=== PATIENT | female | born 1935 | race Caucasian/White ===

== ENCOUNTER 2020-12-08 22:18 | Observation (INO) | payer MEDICARE ==
[~2020-12-08] VITALS: Ht 170.2 cm; Wt 75.3 kg
[2020-12-08 22:58] LABS: BASOPHILS % (AUTO) 0 % (0-1); EOSINOPHILS % (AUTO) 1 % (1-7); LYMPHOCYTES % (AUTO) 3 % (22-44); MEAN CORPUSCULAR HEMOGLOBIN 35.8 pg (27.0-34.8); MEAN CORPUSCULAR HGB CONC 34.8 g/dL (32.4-35.8); MEAN PLATELET VOLUME 8.5 fL (7.4-10.4); MONOCYTES % (AUTO) 3 % (2-9); NEUTROPHILS % (AUTO) 93 % (42-75); PLATELET COUNT 173 x10^3/uL (130-400); RED BLOOD COUNT 2.86 x10^6/uL (3.82-5.3); RED CELL DISTRIBUTION WIDTH 19.7 % (9.6-15.2)
--- NOTE | 2020-12-08 22:59 | NUR ---
BIB EMS FROM [place], [place]. PT WITH HX OF DEMENTIA WAS HAVING INCREASED SOB FROM HOME, SUSPECTED TO HAVE PE, PT BROUGHT HERE FOR FURTHER WORKUP. PT IS A/O1-2 PER [facility]. UNKOWN IF FAMILY COMING PER REPORT. 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 PT PLACED ON ALL MONITORS. NEW PIV PLACED FOR CTA. PT AMBULATYED TO BSC TO URINATE. EKG AT BEDSIDE AT THIS TIME
[2020-12-08] MEDS ORDERED: SODIUM CHLORIDE FLUSH 10ML SYR IVF ONE (23:00)
[2020-12-08 23:03] LABS: ALBUMIN 3.5 g/dL (3.4-5.0); ANION GAP 8 mmol/L (5-15); CALCIUM 8.9 mg/dL (8.5-10.1); CHLORIDE 99 mmol/L (98-107); CREATININE 0.65 mg/dL (0.55-1.02)
[2020-12-08 23:07] LABS: TROPONIN I < 0.015 ng/mL (0.000-0.045)
[2020-12-09] MEDS ORDERED: OMNIPAQUE 350 MG/ML, 75ML BOTTLE ONE
--- NOTE | 2020-12-09 | NUR ---
PT AMBULATED TO BSC AFTER CT SCAN WAS COMPLTETED. SAFETY MEASURES IN PLACE. PT ON ALL MONITORS
[2020-12-09] MEDS ORDERED: METO-99 PO (00:41)
[2020-12-09] MEDS ORDERED: LAMO25TA9 PO (00:41)
[2020-12-09] MEDS ORDERED: LISI-466 PO (00:41)
[2020-12-09] MEDS ORDERED: LEVO100T PO (00:41)
[2020-12-09] MEDS ORDERED: RISP2TAB35 PO (00:41)
[2020-12-09] MEDS ORDERED: SPIR25TA5 PO (00:41)
[2020-12-09] MEDS ORDERED: FURO-93 PO (00:41)
[2020-12-09] MEDS ORDERED: SODIUM CHLORIDE FLUSH 10ML SYR IVF PRN (01:30)
--- NOTE | 2020-12-09 01:39 | NUR ---
REPORT GIVEN TO LINUS ALARCON
[2020-12-09 01:58] LABS: BASOPHILS % (AUTO) 0 % (0-1); EOSINOPHILS % (AUTO) 0 % (1-7); LYMPHOCYTES % (AUTO) 4 % (22-44); MEAN CORPUSCULAR HEMOGLOBIN 37.3 pg (27.0-34.8); MEAN CORPUSCULAR HGB CONC 36.2 g/dL (32.4-35.8); MEAN PLATELET VOLUME 8.3 fL (7.4-10.4); MONOCYTES % (AUTO) 6 % (2-9); NEUTROPHILS % (AUTO) 89 % (42-75); PLATELET COUNT 154 x10^3/uL (130-400); RED BLOOD COUNT 2.67 x10^6/uL (3.82-5.3)
[2020-12-09] MEDS ORDERED: LABETALOL 5MG/ML, 20ML IVPush PRN (02:00)
[2020-12-09] MEDS ORDERED: POLYETHYLENE GLYCOL 17 GM PACKET PO PRN (02:00)
[2020-12-09] MEDS ORDERED: ONDANSETRON 2MG/ML, 2ML IVPush PRN (02:00)
[2020-12-09] MEDS ORDERED: NITROGLYCERIN 0.4 MG/SPRAY SL PRN (02:00)
[2020-12-09] MEDS ORDERED: MELATONIN 5 MG TABLET PO PRN (02:00)
[2020-12-09] MEDS ORDERED: ENOXAPARIN 40 MG/0.4 ML SQ SCH (02:00)
[2020-12-09] MEDS ORDERED: NITROGLYCERIN 0.4 MG BOTTLE (25 TABS) SL PRN (02:00)
[2020-12-09] MEDS ORDERED: ACETAMINOPHEN 500 MG TABLET PO PRN (02:00)
[2020-12-09 02:09] VITALS: BP 139/61
[2020-12-09 02:10] LABS: ANION GAP 6 mmol/L (5-15); CALCIUM 8.4 mg/dL (8.5-10.1); CHLORIDE 99 mmol/L (98-107); CREATININE 0.63 mg/dL (0.55-1.02)
[2020-12-09 02:17] LABS: TROPONIN I < 0.015 ng/mL (0.000-0.045)
[2020-12-09 02:49] LABS: FREE T4 (FREE THYROXINE) 1.37 ng/dL (0.76-1.46)
[2020-12-09] MEDS: LEVOTHYROXINE 100 MCG TABLET PO SCH (06:03)
[2020-12-09 06:23] VITALS: BP 153/81
[2020-12-09 08:04] LABS: TROPONIN I < 0.015 ng/mL (0.000-0.045)
[2020-12-09] MEDS: FUROSEMIDE 20 MG TABLET PO SCH ×2 (08:39→21:33)
[2020-12-09] MEDS: METOPROLOL TARTRATE 100 MG TAB PO SCH ×2 (08:39→21:33)
[2020-12-09] MEDS: LAMOTRIGINE 25 MG TABLET PO SCH ×2 (08:39→21:33)
[2020-12-09] MEDS: RISPERIDONE 2 MG TABLET PO SCH (08:39)
[2020-12-09] MEDS: LISINOPRIL 10 MG TABLET PO SCH (08:39)
[2020-12-09] MEDS: SPIRONOLACTONE 25 MG TABLET PO SCH (08:39)
[2020-12-09] MEDS ORDERED: REGADENOSON 0.4 MG/5 ML SYRINGE ONE (12:21)
[2020-12-09] MEDS ORDERED: POTASSIUM CHLORIDE 40 MEQ in SODIUM CHLORIDE 0.9% 500 ML IV ONE (12:30)
[2020-12-09 14:31] VITALS: BP 147/58
[2020-12-09 14:34] VITALS: BP_SYST 159; BP_SYST 160; BP_DIAS 61; BP_DIAS 65
[2020-12-09 21:47] VITALS: BP 119/61
[2020-12-10 01:45] VITALS: BP 145/65
[2020-12-10 04:19] VITALS: BP_SYST 119; BP_SYST 128; BP_SYST 148; BP_DIAS 63; BP_DIAS 67; BP_DIAS 68
[2020-12-10 05:04] LABS: MEAN CORPUSCULAR HEMOGLOBIN 35.6 pg (27.0-34.8); MEAN CORPUSCULAR HGB CONC 34.7 g/dL (32.4-35.8); MEAN PLATELET VOLUME 8.3 fL (7.4-10.4); PLATELET COUNT 181 x10^3/uL (130-400); RED BLOOD COUNT 2.77 x10^6/uL (3.82-5.3); RED CELL DISTRIBUTION WIDTH 19.4 % (9.6-15.2)
[2020-12-10 05:13] LABS: ANION GAP 6 mmol/L (5-15); CALCIUM 8.4 mg/dL (8.5-10.1); CHLORIDE 99 mmol/L (98-107); CREATININE 0.63 mg/dL (0.55-1.02)
[2020-12-10 05:57] LABS: BAND#(MANUAL) 1.27 x10^3/uL; BANDS%(MANUAL) 8 % (0-7); LYMPH#(MANUAL) 0.16 x10^3/uL (1-3.4); LYMPHS% (MANUAL) 1 % (22-44); METAMYELOCYTES# (MANUAL) 0.16 x10^3/uL (0-0); METAMYELOCYTES% (MANUAL) 1 % (0-1); MONOS#(MANUAL) 0.95 x10^3/uL (0.3-2.7); MONOS% (MANUAL) 6 % (2-9)
[2020-12-10 05:58] LABS: <PLATELET ESTIMATE> ADEQUATE; <PLT MORPHOLOGY> NORMAL PLT MORPH; ANISOCYTOSIS 1+; EOS#(MANUAL) 0.16 x10^3/uL (0.0-0.4); EOS% (MANUAL) 1 % (1-7); OVALOCYTES 1+; PMNS WITH VACUOLES 1+; SEGS% (MANUAL) 83 % (42-75)
[2020-12-10 08:00] VITALS: BP_SYST 123; BP_SYST 128; BP_DIAS 62; BP_DIAS 78
[2020-12-10] MEDS: METOPROLOL TARTRATE 100 MG TAB PO SCH (09:42)
[2020-12-10] MEDS: SPIRONOLACTONE 25 MG TABLET PO SCH (09:42)
[2020-12-10] MEDS: LAMOTRIGINE 25 MG TABLET PO SCH (09:42)
[2020-12-10] MEDS: FUROSEMIDE 20 MG TABLET PO SCH (09:42)
[2020-12-10] MEDS: LISINOPRIL 10 MG TABLET PO SCH (09:42)
[2020-12-10] MEDS: LEVOTHYROXINE 100 MCG TABLET PO SCH (09:42)
[2020-12-10] MEDS: RISPERIDONE 2 MG TABLET PO SCH (09:43)
== END 2020-12-10 12:23 | disposition home or self-care (01) ==
LOC: ED 22:48 → EDIP 12-09 02:12 → 5SO 12-09 02:15
PROVIDERS: ADMIT Internal Medicine; ATTEND Family Medicine
DX: R07.89 Other chest pain (principal); R06.00 Dyspnea, unspecified; J90 Pleural effusion, not elsewhere classified; I25.10 Atherosclerotic heart disease of native coronary artery without angina pectoris; I71.2 Thoracic aortic aneurysm, without rupture; E27.8 Other specified disorders of adrenal gland; I10 Essential (primary) hypertension; E03.9 Hypothyroidism, unspecified; D72.829 Elevated white blood cell count, unspecified; I70.0 Atherosclerosis of aorta; I08.0 Rheumatic disorders of both mitral and aortic valves; I25.2 Old myocardial infarction; F01.50 Vascular dementia, unspecified severity, without behavioral disturbance, psychotic disturbance, mood disturbance, and anxiety; Z88.0 Allergy status to penicillin; Z90.710 Acquired absence of both cervix and uterus; Z87.440 Personal history of urinary (tract) infections; Z79.899 Other long term (current) drug therapy
CPT/HCPCS: 36415; 71275; 78452; 80048; 82040; 82607; 83735; 83880; 84439; 84443; 84481; 84484; 85025; 93005; 93017; 93306; 96360; 96361; 96372; 97162; 97166; 99285; A9502; G0378; J1650; J2785; J3480; J7040; Q9967